=== PATIENT | female | born 1955 | race Caucasian/White ===

== ENCOUNTER 2016-08-06 13:17 | Inpatient (IN) | payer OTHER, BC ==
[~2016-08-06] VITALS: Ht 170.2 cm; Wt 100.2 kg
[2016-08-07] MEDS ORDERED: WARF-23 PO (11:58)
[2016-08-07] MEDS ORDERED: PARO20TA2 PO (11:58)
[2016-08-07] MEDS ORDERED: CIME200T23 PO (12:00)
[2016-08-07] MEDS ORDERED: LOPE7.5C PO (12:00)
[2016-08-07] MEDS ORDERED: SUPETAB20 PO (12:01)
[2016-08-24] MEDS ORDERED: CHLORHEXIDINE GLUCONATE 4% SOLN 120 ML BTL TOPICAL SCH (06:00)
[2016-08-24] MEDS ORDERED: METOPROLOL TARTRATE 25 MG TAB PO PRN (06:00)
[2016-08-24] MEDS ORDERED: LACTATED RINGER'S 1000 ML IV PRN (06:00)
[2016-08-24] MEDS ORDERED: POVIDONE IODINE 7.5% SCRUB 118 ML BOTTLE TOPICAL SCH (06:00)
[2016-08-24] MEDS ORDERED: DEXAMETHASONE SOD PHOS 20 MG/5 ML VIAL IV PRN (06:00)
[2016-08-24] MEDS ORDERED: CHLORHEXIDINE GLUCONATE 2 % 1 PACK (2 CLOTHS) TOPICAL PRN (06:00)
[2016-08-24] MEDS ORDERED: INSULIN HUMAN REGULAR 1,000 UNITS/10 ML VIAL SQ PRN (06:00)
[2016-08-24] MEDS ORDERED: VANCOMYCIN 1000 MG/NS 250 ML (for <70 kg) IV SCH ×2 (06:00)
[2016-08-24] MEDS ORDERED: POVIDONE IODINE 5% (ANTISEPSIS KIT) 4 APPLICATIONS EACH NARE PRN (06:00)
[2016-08-24] MEDS ORDERED: TRANEXAMIC ACID INJ 1,450 MG in SODIUM CHLORIDE 0.9% INJ 100 ML IV SCH (06:00)
[2016-08-24] MEDS ORDERED: TRANEXAMIC PERI-ARTICULAR 3,000 MG/NS 100 ML P-ARTICULR SCH ×2 (06:00)
[2016-08-24] MEDS ORDERED: ceFAZolin 2 GM PREMIX 50 ML IV SCH (06:00)
[2016-08-24] MEDS ORDERED: SODIUM CHLORID 0.9% 500 ML IV PRN (06:00)
[2016-08-24] MEDS ORDERED: ROPIVACAINE PERI-ARTICULAR INJECTION. P-ARTICULR SCH ×5 (06:00)
[2016-08-24] MEDS ORDERED: ENOX30P SQ (06:17)
[2016-08-24 06:19] VITALS: BP 132/86; PULSE 77; RESP 16; TEMP 98.2; O2SAT 95
[2016-08-24 06:48] LABS: PROTHROMBIN TIME - PATIENT 11.5 SEC (9.8-11.6)
[2016-08-24] MEDS ORDERED: GENTAMICIN SULFATE 80 MG/2 ML VIAL ONE (06:58)
[2016-08-24] MEDS ORDERED: HYDR-3288 PO (07:04)
[2016-08-24] MEDS ORDERED: ENOX40P SQ (07:05)
[2016-08-24] MEDS ORDERED: BISACODYL 10 MG SUPP RECTAL PRN (07:15)
[2016-08-24] MEDS ORDERED: Post-op Orders (for Pharmacy) MISC XX ONE (07:15)
[2016-08-24] MEDS ORDERED: ZOLPIDEM TARTRATE 5 MG TAB PO PRN (07:15)
[2016-08-24] MEDS ORDERED: ONDANSETRON HCL 4 MG/2 ML VIAL IVP PRN (07:15)
[2016-08-24] MEDS ORDERED: FAMOTIDINE 20 MG TAB PO PRN (07:15)
[2016-08-24] MEDS ORDERED: diphenhydrAMINE HCL 50 MG/ML VIAL IV PRN (07:15)
[2016-08-24] MEDS ORDERED: SODIUM CHLORIDE 0.9% FLUSH 5 ML FLUSH IVF PRN (07:15)
[2016-08-24] MEDS ORDERED: MORPHINE SULFATE 4 MG/ML INJ IV PUSH PRN (07:15)
[2016-08-24] MEDS ORDERED: ALUMINUM/MAGNESIUM/SIMETH 30 ML CUP PO PRN (07:15)
[2016-08-24] MEDS ORDERED: NALOXONE HCL 0.4 MG/ML AMP IV PRN (07:15)
[2016-08-24] MEDS: SODIUM CHLORIDE 0.9% FLUSH 5 ML FLUSH IVF SCH ×2 (09:00→21:00)
[2016-08-24] MEDS: PARoxetine HCL 20 MG TAB PO SCH (09:00)
[2016-08-24] MEDS ORDERED: GENTAMICIN SULFATE 80 MG/2 ML VIAL IRRIGATION ONE (09:18)
[2016-08-24] MEDS ORDERED: BUPIVACAINE LIPOSOME PF 1.3% 20 ML VIAL ONE (09:47)
[2016-08-24] MEDS ORDERED: DO NOT ADM ANY ANTICOAGULANT DRUGS PRN (11:05)
[2016-08-24] MEDS ORDERED: MIDAZOLAM HCL 2 MG/2 ML VIAL ONE (11:17)
[2016-08-24] MEDS ORDERED: *morphine SULFATE 8 MG/ML PERIprocedure ONLY ONE ×2 (11:18→11:27)
[2016-08-24] MEDS ORDERED: *MEPERIDINE 25 MG INJ VIAL PERIprocedural Use ONLY ONE (11:28)
[2016-08-24] MEDS: SODIUM CHLOR 0.9% 1000 ML INJ 1,000 ML IV SCH ×3 (11:30→19:28)
--- NOTE | 2016-08-24 11:56 | RADRPT ---
EXAM DATE/TIME: 08/24/2016 11:26 [facility] COMPARISON: No previous studies available for comparison. INDICATIONS : Post-op total right knee arthroplasty. MEDICAL HISTORY : None. SURGICAL HISTORY : Cholecystectomy. Right breast lumpectomy. ENCOUNTER: Initial ACUITY: 1 day PAIN SCORE: 8/10 LOCATION: Right knee. FINDINGS: Patient is status post placement of a right knee prosthesis. There is good position and alignment of the prosthesis and bony structures. The bony structures are grossly intact. Postsurgical changes are present. CONCLUSION: Good position and alignment on this postoperative examination. Arnold Cisneros MD on August 24, 2016 at 11:53 Board Certified Radiologist. This report was verified electronically.
[2016-08-24] MEDS ORDERED: *HYDROmorphone PF 1 MG VIAL PERIprocedural Use ONLY ONE (11:58)
[2016-08-24] MEDS ORDERED: LACTATED RINGER'S 1000 ML INJ 1,000 ML IV ONE (12:00)
[2016-08-24] MEDS ORDERED: PROPOFOL 200 MG/20 ML AMP IV ONE (12:00)
[2016-08-24] MEDS ORDERED: ONDANSETRON HCL 4 MG/2 ML VIAL IV PUSH ONE (12:00)
--- NOTE | 2016-08-24 12:05 | MP ---
cc: HELENA LONG M.D. DATE OF SURGERY 08/24/2016 PREOPERATIVE DIAGNOSIS Right knee osteoarthritis. POSTOPERATIVE DIAGNOSIS Right knee osteoarthritis. PROCEDURE Right total knee arthroplasty. SURGEON Helena Long MD CRISIS INTERVENTION COUNSELOR Edenilson Doan PA-C ANESTHESIA General with an adductor canal nerve block. ESTIMATED BLOOD LOSS 50 cc. TOURNIQUET TIME 54 minutes at 250 mmHg. COMPLICATIONS None. IMPLANTS USED DePuy Attune size 6 posterior stabilized femoral component, size 5 rotating platform tibial baseplate, size 7-mm polyethylene tibial insert, size 35 patella. JUSTIFICATION This patient is a 61-year-old female with a history of severe end-stage osteoarthritis involving the right knee. She has severe disabling pain with standing, walking, ambulation, weightbearing activities and severe pain at rest. She has failed greater than three months of nonoperative conservative treatment to include medication therapy, injections, ambulatory assistive aids, home exercise program, weight loss attempts, activity modification. X-rays of the right knee reveal severe end-stage osteoarthritis with joint space narrowing, subchondral sclerosis, subchondral cysts, osteophyte formation and varus deformity. The patient was counseled as to the risks, benefits and alternatives to a total knee arthroplasty. The risks which were discussed include but are not limited to anesthesia, bleeding, infection, damage to nerves, blood vessels, pain, stiffness, failure of the components, blood clots, pulmonary embolism and even . The patient's pain was severe. She favored the benefits over the risks and did wish to proceed with surgery. PROCEDURE IN DETAIL Written consent was obtained. The patient was identified by name and taken to the operating room, placed supine on the operating room table. General anesthesia was administered as well as 2 grams of IV Ancef and 1 gram of IV vancomycin. A well-padded tourniquet was placed on the right thigh, the right lower extremity prepped and draped using isopropyl alcohol, Hibiclens solution and ChloraPrep solution. After a time-out was performe, an Esmarch bandage was used to exsanguinate the right lower extremity and the tourniquet inflated to 250 mmHg. A longitudinal incision was made over the anterior aspect of the right knee and medial parapatellar arthrotomy was performed. The patella was everted. The patella resection guide was used to resect 9 mm of patella. A size 35-mm guide was placed and three drill holes were placed and the 35-mm trial fit well. Attention was turned to the femur where an intramedullary guide ivanna was placed. The distal femoral guide was set to remove 10-mm of distal femur 5 degrees off the anatomic valgus axis alignment. An oscillating saw was used to perform the distal femoral cut. Attention was turned to the tibia where an extramedullary tibial guide was used to resect 5-mm off the lowest portion of the medial tibial plateau. The tibial guide was pinned in place and the tibial was cut was performed. A 5-mm spacer block showed full extension. Attention was turned back to the femur where the AP sizer block measured a size 6. The anterior reference, 3-degree external rotational guide was used to pin a size [address] Anterior, posterior and chamfer cuts were performed. A size 5 tibial baseplate was pinned in place to be drilled and punched. Trial components were evaluated and final components cemented in place. With the 7-mm tibial insert, the leg could achieve full extension to 0 degrees and flexion to 140, no evidence of tibial lift-off. Varus-valgus balance appeared appropriate and symmetric and the patella was noted to track centrally. The tourniquet was deflated and Bovie cautery was used for hemostasis. I did add FloSeal to the wound to assist with local hemostasis. The arthrotomy incision was closed with #1 Vicryl suture, the subcutaneous layer closed with 2-0 Vicryl suture and the skin was closed with Dermabond. Sterile dressings were applied. The patient tolerated the procedure well. There was no intraoperative complication noted. Edenilson Doan, physician assistant men's soccer coach certified, was present during the entire procedure to assist with patient positioning and the procedure itself. The medical necessity of a physician assistant men's soccer coach was indicated in this case due to the complexity of the procedure. He assisted with appropriate manipulation of the leg and also retraction of muscle, tendon, bone and neurovascular structures. He assisted with preparation of bone and also implantation of the prosthetic replacement. Helena Long MD JWM/SSB /10:47 AM /11:53 AM
[2016-08-24 12:30] VITALS: BP 117/78; PULSE 100; RESP 18; TEMP 97.5; O2SAT 95
--- NOTE | 2016-08-24 12:59 | PD.CONS ---
HPI Service [facility] Hospitalists Consult Requested By Dr. Jacques Luna Reason for Consult Medical Management Primary Care Physician Anish Ramos, Diagnoses: History of Present Illness Mrs. rBan is a 61 y/o female with osteoarthritis, hx of breast cancer, hx of DVT/PE, and depression. She was admitted to [facility] on 08/24/16 for an elective right knee total arthroplasty which was performed by Dr. Luna. [facility] Hospitalist team was consulted to help with managing the pts chronic medical issues. She was on Coumadin 5mg po daily as an outpt which was held prior to admission and pt had been on Lovenox. She will be resumed on her Coumadin today and Lovenox tomorrow. Pt is seen post-operatively without any specific complaints. Vital signs are stable. Denies any nausea/vomiting, abd pain, chest pain, SOB, palpitations, dizziness or headache. Review of Systems Constitutional: DENIES: Fever, Chills Respiratory: DENIES: Cough, Shortness of breath Cardiovascular: DENIES: Chest pain, Palpitations Gastrointestinal: DENIES: Abdominal pain, Nausea, Vomiting Genitourinary: DENIES: Hematuria Musculoskeletal: COMPLAINS OF: Joint pain Integumentary: DENIES: Rash Neurologic: DENIES: Headache Psychiatric: DENIES: Confusion Past Family Social History Past Medical History Osteoarthritis Hx of right breast cancer Lupus Depression Hx of DVT/PE and reported hx of antiphospholipid antibody syndrome Past Surgical History Total hysterectomy Vena cava filter Cholecystectomy Right breast lumpectomy Reported Medications Lovenox Inj (Enoxaparin Sodium) 30 Mg/0.3 Ml Syr 30 Mg SQ DAILY Super B Complex Maxi (B-Complex W/ Folic Acid) 1 Tab 1 Tab PO DAILY Imodium A-D (Loperamide HCl) 2 Mg Cap 2 Mg PO DIRECTED PRN -Tagamet Hb 200 Mg PO DAILY PRN -Warfarin 5 Mg PO DAILY -Paroxetine 20 Mg PO DAILY ?Hydroxychloroquine 200mg PO DAILY Allergies: Coded Allergies: No Known Allergies (Unverified , 08/07/16) Family History Family hx unknown as pt is adopted Social History Denies any tobacco or illicit drug use Pt drinks 3 alcoholic beverages per week She is currently Pt is retired Physical Exam Vital Signs Vital Signs Date Time Temp Pulse Resp B/P Pulse Ox O2 Delivery O2 Flow Rate FiO2 08/24/16 06:19 98.2 77 16 132/86 95 Physical Exam GENERAL: This is a well-nourished, well-developed patient, in no apparent distress. HEENT: Atraumatic. Normocephalic. No temporal or scalp tenderness. No scleral icterus. Airway patent. NECK: Trachea midline, supple, nontender. CARDIO: Regular. RESP: CTA bilaterally. No wheezes, rales, or rhonchi. ABD: +BS, soft, non-tender, nondistended. EXT: Right knee bandages are c/d/i NEURO: Awake and alert. Motor and sensory grossly within normal limits. Normal speech. Laboratory Laboratory Tests Test 08/24/16 06:25 Prothrombin Time 11.5 Prothromb Time International 1.0 Ratio Blood Type O POSITIVE Antibody Screen NEGATIVE Blood Bank Comment Imaging Last Impressions Knee X-Ray 08/24/16 0702 Signed Impressions: Service Date/Time: Wednesday, August 24, 2016 11:26 - CONCLUSION: Good position and alignment on this postoperative examination. Arnold Cisneros MD Assessment and Plan Problem List: (1) Primary localized osteoarthrosis, lower leg Status: Chronic Plan: - Pt s/p right total knee arthroplasty on 08/24/[address] Luna - Post-op pain control per Ortho - Pts Coumadin has been resumed, Lovenox to be resumed tomorrow - Monitor INR daily - IS - PT - Constipation precautions. Assessment and Plan Patient examined. Assessment and plan formulated with Gayle Fan PA-C. I agree with the above. s/p right tka hx dvt/ivc filter and AP ab syndrome. possible sle. chronically anticoagulated. resume coumadin, bridge lovenox. hx breast ca s/p lumpectomy and radiation on right. Problem Qualifiers (1) Primary localized osteoarthrosis, lower leg: Qualified Code: M17.11 - Primary localized osteoarthrosis, lower leg, right Gayle Fan August 24, 2016 12:59 Trenton Adasm MD August 24, 2016 15:54
--- NOTE | 2016-08-24 13:28 | HHI.DCPOC ---
Discharge Care Plan Diagnosis: (1) Primary localized osteoarthrosis, lower leg Your Health Problems Are: Difficulty with ADL Goals to Promote Your Health * To prevent worsening of your condition and complications * To maintain your health at the optimal level Directions to Meet Your Goals Take your medications as prescribed Follow your dietary instruction Follow activity as directed Keep your appointments as scheduled Take your immunizations and boosters as scheduled If your symptoms worsen call your PCP, if no PCP go to Urgent Care Center or Emergency Room Smoking is Dangerous to Your Health. Avoid second hand smoke Call the 24-hour hour crisis hotline for domestic abuse at Jacques Doan August 24, 2016 13:28
--- NOTE | 2016-08-24 13:29 | HHI.FF ---
Face to Face Verification Diagnosis: (1) Primary localized osteoarthrosis, lower leg Physical Therapy Gait training, Safety evaluation, Transfer training, bed to chair Knee: Total knee, Protocol: Right, Full weight bearing Right LE Weight Bearing: WB as tolerated Nursing RN: 3 days/week x 2 weeks Nursing: Aurea teaching, Dressing changes Dressing Changes: Daily dressing change I have seen patient Jacquelin Bran on 08/24/16. My clinical findings support the need for the requested home health care services because: Limited ability to care for self High risk of falls I certify that my clinical findings support that this patient is homebound because: Post-op weakness Unsteady gait/balance Jacques Doan August 24, 2016 13:29
[2016-08-24] MEDS ORDERED: CPMMACHINE (13:31)
[2016-08-24] MEDS ORDERED: MISC-163 (13:31)
[2016-08-24] MEDS ORDERED: WALKER WHEELS/F1 MIS (13:31)
[2016-08-24] MEDS: ACETAMINOPHEN/HYDROcodone 325 MG/7.5 MG TAB PO PRN ×3 (14:44→22:43)
[2016-08-24] MEDS: WARFARIN SOD 5 MG TAB PO SCH (15:46)
[2016-08-24 15:57] VITALS: O2SAT 96
[2016-08-24 16:00] VITALS: BP 89/57; PULSE 93; RESP 18; TEMP 96.7; O2SAT 95
[2016-08-24 17:55] VITALS: BP 106/67
[2016-08-24 19:00] VITALS: BP 92/60; PULSE 85; RESP 16; TEMP 97.2; O2SAT 98
[2016-08-25] VITALS (7 sets, daily range): BP systolic 103–147; BP diastolic 62–80; PULSE 77–86; RESP 16–22; TEMP 97.7–99.6; O2SAT 92–99
[2016-08-25] MEDS: ACETAMINOPHEN/HYDROcodone 325 MG/7.5 MG TAB PO PRN ×6 (02:55→23:36)
[2016-08-25 05:09] LABS: HEMATOCRIT 29.1 % (35.0-46.0); MEAN CELL VOLUME 88.2 FL (80.0-100.0); MEAN CORPUSCULAR HEMOGLOBIN 29.4 PG (27.0-34.0); MEAN CORPUSCULAR HGB CONC 33.3 % (32.0-36.0); PLATELET COUNT 120 TH/MM3 (150-450); RED CELL DISTRIBUTION WIDTH 14.3 % (11.6-17.2); REVIEW FLAG FINAL; WHITE BLOOD COUNT 6.3 TH/MM3 (4.0-11.0)
[2016-08-25 05:19] LABS: PROTHROMBIN TIME - PATIENT 11.5 SEC (9.8-11.6)
[2016-08-25 05:34] LABS: BICARBONATE 29.7 MEQ/L (21.0-32.0); POTASSIUM 4.3 MEQ/L (3.5-5.1)
--- NOTE | 2016-08-25 08:20 | PD.ORT.PN ---
Subjective Post Op Day #: 1 Subjective Remarks pain under control. Objective Vitals Vital Signs Date Time Temp Pulse Resp B/P Pulse Ox O2 Delivery O2 Flow Rate FiO2 08/25/16 04:00 98.4 78 16 109/62 98 08/25/16 00:01 97.7 83 17 103/62 99 08/24/16 19:00 97.2 85 16 92/60 98 08/24/16 18:52 Nasal Cannula 2.00 08/24/16 17:55 106/67 08/24/16 16:00 96.7 93 18 89/57 95 08/24/16 15:57 96 Nasal Cannula 2.00 08/24/16 12:30 97.5 100 18 117/78 95 08/24/16 12:10 96 16 142/75 95 Nasal Cannula 3 08/24/16 12:00 97 16 150/80 95 Nasal Cannula 3 08/24/16 11:45 100 16 141/65 96 Nasal Cannula 3 08/24/16 11:30 93 16 172/74 94 Nasal Cannula 3 08/24/16 11:15 97 16 174/89 96 Nasal Cannula 3 08/24/16 11:03 98.9 100 16 155/72 95 Room Air I/O 08/24/16 08/24/16 08/24/16 08/25/16 08/25/16 08/25/16 07:00 15:00 23:00 07:00 15:00 23:00 Intake Total 2650 ml 1446 ml 1011 ml Output Total 1050 ml 600 ml 700 ml Balance 1600 ml 846 ml 311 ml Intake Oral 650 ml 480 ml 250 ml IV Total 966 ml 761 ml Other 2000 ml Output Urine Total 750 ml 600 ml 700 ml Estimated Blood Loss 300 ml # Bowel Movements 0 0 0 Result Diagram: 08/25/16 0442 08/25/16 0442 Other Results Laboratory Tests Test 08/25/16 04:42 Prothrombin Time 11.5 SEC (9.8-11.6) Prothromb Time International 1.0 RATIO Ratio Objective Remarks in bed, nad, in room incision no erythema, no drainage neg homans nvi Assessment & Plan Ortho Post Op Day #: 1 Problem List: Assessment and Plan s/p R TKA wbat daily dressing changes resume coumadin, lovenox bridge hx of DVT/PE, has IVC filter d/c planning home with [facility] and pt rx in chart f/up dr. salas 2 weeks Jacques Doan August 25, 2016 08:20
[2016-08-25] MEDS: SODIUM CHLORIDE 0.9% FLUSH 5 ML FLUSH IVF SCH ×2 (09:00→20:09)
[2016-08-25] MEDS: PARoxetine HCL 20 MG TAB PO SCH (09:04)
[2016-08-25] MEDS ORDERED: PNEUMOCOCCAL POLYVALENT INJ 25 MCG/0.5 ML SYR IM ONE (10:00)
[2016-08-25] MEDS: ENOXAPARIN SODIUM 40 MG/0.4 ML SYRINGE SQ SCH (10:12)
[2016-08-25] MEDS: SODIUM CHLOR 0.9% 1000 ML INJ 1,000 ML IV SCH ×2 (13:02→20:09)
[2016-08-25] MEDS: WARFARIN SOD 5 MG TAB PO SCH (15:59)
[2016-08-25] MEDS: MULTIVITAMINS/MINERALS THERAPEUTIC TAB PO SCH (20:08)
[2016-08-25] MEDS: DOCUSATE SODIUM 100 MG CAP PO SCH (20:08)
[2016-08-26] VITALS: BP 141/69; PULSE 84; RESP 20; TEMP 98.7; O2SAT 95
[2016-08-26] MEDS: ACETAMINOPHEN/HYDROcodone 325 MG/7.5 MG TAB PO PRN ×3 (03:43→13:01)
[2016-08-26 04:00] VITALS: BP 119/62; PULSE 75; RESP 18; TEMP 97.9; O2SAT 94
[2016-08-26 07:38] LABS: HEMATOCRIT 28.2 % (35.0-46.0); MEAN CELL VOLUME 88.2 FL (80.0-100.0); MEAN CORPUSCULAR HEMOGLOBIN 29.2 PG (27.0-34.0); MEAN CORPUSCULAR HGB CONC 33.2 % (32.0-36.0); PLATELET COUNT 111 TH/MM3 (150-450); RED CELL DISTRIBUTION WIDTH 14.6 % (11.6-17.2); REVIEW FLAG FINAL; WHITE BLOOD COUNT 4.5 TH/MM3 (4.0-11.0)
[2016-08-26 07:43] VITALS: BP 127/69; PULSE 79; RESP 17; TEMP 96.9; O2SAT 94
[2016-08-26 07:43] LABS: PROTHROMBIN TIME - PATIENT 11.6 SEC (9.8-11.6)
--- NOTE | 2016-08-26 07:51 | PD.ORT.PN ---
Subjective Post Op Day #: 2 Subjective Remarks pain better today. ready to go home. Objective Vitals Vital Signs Date Time Temp Pulse Resp B/P Pulse Ox O2 Delivery O2 Flow Rate FiO2 08/26/16 04:00 97.9 75 18 119/62 94 08/26/16 00:00 98.7 84 20 141/69 95 08/25/16 20:00 99.2 84 22 146/73 95 08/25/16 18:42 Room Air 08/25/16 16:00 99.6 86 18 147/80 92 08/25/16 12:00 98.6 77 18 135/68 92 08/25/16 10:13 96 21 08/25/16 08:00 98.5 80 18 108/62 96 I/O 08/25/16 08/25/16 08/25/16 08/26/16 08/26/16 08/26/16 07:00 15:00 23:00 07:00 15:00 23:00 Intake Total 1011 ml 960 ml 780 ml 240 ml Output Total 700 ml Balance 311 ml 960 ml 780 ml 240 ml Intake Oral 250 ml 960 ml 780 ml 240 ml IV Total 761 ml Output Urine Total 700 ml # Voids 3 4 2 # Bowel Movements 0 0 0 0 Result Diagram: 08/26/16 0656 08/25/16 0442 Other Results Laboratory Tests Test 08/26/16 06:56 Prothrombin Time 11.6 SEC (9.8-11.6) Prothromb Time International 1.0 RATIO Ratio Objective Remarks in bed, nad incision no erythema, no drainage slight swelling neg homans nvi Assessment & Plan Ortho Post Op Day #: 2 Problem List: Assessment and Plan s/p R TKA wbat daily dressing changes resumed coumadin, lovenox bridge hx of DVT/PE, has IVC filter d/c planning home with [facility] and pt - cleared for today rx in chart f/up dr. salas 2 weeks Jacques Doan August 26, 2016 07:51
[2016-08-26 08:11] LABS: BICARBONATE 29.6 MEQ/L (21.0-32.0); POTASSIUM 3.8 MEQ/L (3.5-5.1)
[2016-08-26] MEDS: MULTIVITAMINS/MINERALS THERAPEUTIC TAB PO SCH (08:49)
[2016-08-26] MEDS: PARoxetine HCL 20 MG TAB PO SCH (08:49)
[2016-08-26] MEDS: ENOXAPARIN SODIUM 40 MG/0.4 ML SYRINGE SQ SCH (08:49)
[2016-08-26] MEDS: SODIUM CHLOR 0.9% 1000 ML INJ 1,000 ML IV SCH (08:49)
[2016-08-26] MEDS: DOCUSATE SODIUM 100 MG CAP PO SCH (08:49)
[2016-08-26] MEDS: SODIUM CHLORIDE 0.9% FLUSH 5 ML FLUSH IVF SCH (08:50)
[2016-08-26] MEDS ORDERED: DOCUSATE SODIUM 50 MG/SENNA 8.6 MG TAB PO SCH (09:00)
[2016-08-26 11:58] VITALS: BP 114/72; PULSE 73; RESP 17; TEMP 98; O2SAT 94
[2016-08-26] MEDS: WARFARIN SOD 5 MG TAB PO SCH (15:07)
--- NOTE | 2016-08-31 14:27 | MD ---
cc: HELENA LONG M.D. ADMISSION DATE: 08/24/2016 DISCHARGE DATE: 08/26/2016 ADMITTING DIAGNOSIS Severe degenerative osteoarthritis, right knee. DISCHARGE DIAGNOSIS Severe degenerative osteoarthritis, right knee. HISTORY OF PRESENT ILLNESS Mrs. Bran is a 61-year-old female who presented to the [facility] for evaluation by Dr. Helena Long regarding her severe and progressive right knee pain. The patient states the pain has been progressive for greater than one year duration for which she has been treated for this ailment. She states currently her pain is a constant severe aching sensation that is inhibiting her activities of daily living. She notes the pain is exacerbated with weightbearing activities and she has no alleviating factors at this point in time. In the past she has tried medications, bracing, physical therapy, home exercise program, weight loss attempts and multiple corticosteroid injections without long-lasting relief. She does have x-ray evidence of severe degenerative osteoarthritis of the right knee. While in the office the patient was counseled on her diagnosis and treatment options, risks, benefits and indications were discussed. The patient did elect to proceed with surgical intervention to include a right total knee arthroplasty. The patient does have a history of DVT with pulmonary embolism and has in the past had an IVC filter placed. She does take Coumadin for this. Date of surgery 08/24/2016: Right total knee arthroplasty. POST-OP After surgery the patient was admitted to [facility] where she received appropriate medical management, pain control, DVT prophylaxis as well as physical therapy. The patient was restarted on Coumadin postoperatively and was also given a Lovenox bridge. DISCHARGE Once being discharged from the hospital the patient has been cleared to go home where she will receive home health care and home physical therapy. She is in stable condition. She may weight bear as tolerated. She is to receive daily dressing changes and has been instructed on proper wound care management. The patient has been provided prescriptions for pain control as well as Lovenox to continue until her Coumadin and INR become therapeutic. She has also been provided a follow-up appointment to see Dr. Helena Long in the office approximately two weeks from the day of surgery. The patient and the patient's have asked appropriate questions which have been answered. The patient has been discharged. Dictated by: Helena Doan PA-C MD KAIN Mejía /8:08 AM /2:26 PM
== END 2016-08-26 15:44 | disposition home health service (06) | DRG 470 ==
LOC: HSDI 08-24 05:18 → N06B 08-24 12:38
PROVIDERS: ADMIT Orthopaedic Surgery Sports Medicine; ATTEND Orthopaedic Surgery Sports Medicine
PROC: 3E0T3CZ (ICD-10-PCS; 2016-08-24)
PROC: 0SRC0JZ Replacement of Right Knee Joint with Synthetic Substitute, Open Approach (ICD-10-PCS; principal; 2016-08-24 08:17)
DX: M17.11 Unilateral primary osteoarthritis, right knee (principal); D68.61 Antiphospholipid syndrome; F32.9 Major depressive disorder, single episode, unspecified; Z85.3 Personal history of malignant neoplasm of breast; Z86.711 Personal history of pulmonary embolism; Z86.718 Personal history of other venous thrombosis and embolism; Z79.01 Long term (current) use of anticoagulants; Z23 Encounter for immunization
CPT/HCPCS: 73560; 80048; 82948; 85027; 85610; 86850; 86900; 86901; 90732; 94150; C1713; C1776; C9290; J0171; J0690; J0735; J1100; J1170; J1580; J1650; J1885; J2175; J2250; J2270; J2405; J2795; J3010; J3370; J7030; J7050; J7120; L1830

== ENCOUNTER → 2016-08-07 | Outpatient (CLI) | payer OTHER, BC ==
[~2016-08-07] MED LIST: CIME200T23 PO; CPMMACHINE; ENOX30P SQ; ENOX40P SQ; HYDR-3288 PO; LOPE7.5C PO; MISC-163; PARO20TA2 PO; SUPETAB20 PO; WALKER WHEELS/F1 MIS; WARF-23 PO
[2016-08-07 12:55] LABS: AUTOMATED NEUTROPHIL # 3.4 TH/MM3 (1.8-7.7); BASOPHIL % 0.6 % (0.0-2.0); EOSINOPHIL # 0.2 TH/MM3 (0-0.4); EOSINOPHIL % 2.9 % (0.0-4.0); HEMATOCRIT 39.9 % (35.0-46.0); HEMO FLAGS DIFF FINAL; LYMPH % 26.7 % (9.0-44.0); LYMPHOCYTE # 1.4 TH/MM3 (1.0-4.8); MEAN CELL VOLUME 86.8 FL (80.0-100.0); MEAN CORPUSCULAR HEMOGLOBIN 28.8 PG (27.0-34.0); MEAN CORPUSCULAR HGB CONC 33.2 % (32.0-36.0); MONO % 6.5 % (0.0-8.0); NEUT % 63.3 % (16.0-70.0); PLATELET COUNT 158 TH/MM3 (150-450); RED CELL DISTRIBUTION WIDTH 14.6 % (11.6-17.2); WHITE BLOOD COUNT 5.4 TH/MM3 (4.0-11.0)
[2016-08-07 13:01] LABS: BLOOD, URINE NEG (NEG); COMMENT (UR) CULT NOT INDICATED; CULTURE IF INDICATED CULT NOT INDICATED; GLUCOSE,URINE NEG (NEG); KETONE, URINE NEG (NEG); MUCUS URINE FEW /lpf (OCC); NITRITE,URINE NEG (NEG); PH, URINE 5.5 (5.0-8.5); URINE COLOR YELLOW (YELLW/STRAW)
[2016-08-07 13:05] LABS: APTT (PATIENT) 45.4 SEC (24.3-30.1); INTERNATIONAL NORMALIZED RATIO 3.2 RATIO; PROTHROMBIN TIME - PATIENT 37.5 SEC (9.8-11.6)
[2016-08-07 13:27] LABS: ALKALINE PHOSPHATASE 133 U/L (45-117); ALT (GPT) 25 U/L (10-53); ANION GAP 9 MEQ/L (5-15); AST (GOT) 18 U/L (15-37); BICARBONATE 29.1 MEQ/L (21.0-32.0); BLOOD UREA NITROGEN 16 MG/DL (7-18); CHLORIDE 103 MEQ/L (98-107); GLOMERULAR FILTRATION RATE 60 ML/MIN (>89); GLUCOSE,FASTING 88 MG/DL (74-99); POTASSIUM 4.3 MEQ/L (3.5-5.1); SODIUM (NA) 141 MEQ/L (136-145); TOTAL BILIRUBIN ADULT 0.6 MG/DL (0.2-1.0)
--- NOTE | 2016-08-07 13:37 | RADRPT ---
EXAM DATE/TIME: 08/07/2016 12:41 [facility] COMPARISON: No previous studies available for comparison. INDICATIONS : Evaluate for pneumothorax, pneumonia or communicable disease. Preop chest for right total knee surger y on 08/24/16 MEDICAL HISTORY : SURGICAL HISTORY : lumpectomy ENCOUNTER: Initial ACUITY: 1 day PAIN SCORE: 0/10 LOCATION: Bilateral chest FINDINGS: The lungs are clear without infiltrate, nodule, or mass. There is no appreciable pleural effusion fo r technique. Heart and mediastinum are unremarkable. IMPRESSION: No acute cardiopulmonary disease. Norbert Eldridge MD on August 07, 2016 at 13:34 Board Certified Radiologist. This report was verified electronically.
[2016-08-07 14:01] LABS: WESTERGREN SEDIMENTATION RATE 13 mm/hr (0-30)
--- NOTE | 2016-08-08 19:31 | EKG ---
Date Performed: 08/07/2016 Time Performed: 11:49:30 PTAGE: 61 years EKG: Sinus rhythm NORMAL ECG NO PREVIOUS TRACING DOCTOR: Lawanda Jasso Interpretating Date/Time 08/08/2016 19:30:27
== END ==
LOC: CPRE 11:17
PROVIDERS: ATTEND Orthopaedic Surgery Sports Medicine
DX: Z01.810 Encounter for preprocedural cardiovascular examination (principal); Z01.811 Encounter for preprocedural respiratory examination; Z01.812 Encounter for preprocedural laboratory examination; Z01.818 Encounter for other preprocedural examination; Z96.60 Presence of unspecified orthopedic joint implant; M25.50 Pain in unspecified joint; Z79.01 Long term (current) use of anticoagulants; M17.0 Bilateral primary osteoarthritis of knee
CPT/HCPCS: 36415; 71020; 80053; 81001; 85025; 85610; 85652; 85730; 93005

== ENCOUNTER 2017-02-01 05:03 | Inpatient (IN) | payer OTHER, BC ==
[~2017-02-01] VITALS: Ht 170.2 cm; Wt 92.0 kg
[~2017-02-01 05:03] MED LIST changes: -CPMMACHINE; -ENOX30P SQ; -ENOX40P SQ; +ENOX60P SQ; -HYDR-3288 PO; -LOPE7.5C PO; -MISC-163; -SUPETAB20 PO; +VITACAP7 PO; -WALKER WHEELS/F1 MIS; -WARF-23 PO
[2017-02-01] MEDS ORDERED: ROPIVACAINE PERI-ARTICULAR INJECTION. P-ARTICULR SCH ×5 (05:30)
[2017-02-01] MEDS ORDERED: VANCOMYCIN 1000 MG/NS 250 ML (for <70 kg) IV SCH ×2 (05:30)
[2017-02-01] MEDS ORDERED: SODIUM CHLORIDE 0.9% IV SCH (05:30)
[2017-02-01] MEDS ORDERED: DEXAMETHASONE SOD PHOS 20 MG/5 ML VIAL IV PUSH SCH (05:30)
[2017-02-01] MEDS ORDERED: TRANEXAMIC PERI-ARTICULAR 3,000 MG/NS 100 ML P-ARTICULR SCH ×2 (05:30)
[2017-02-01] MEDS ORDERED: ceFAZolin 2 GM PREMIX 50 ML IV SCH (05:30)
[2017-02-01] MEDS ORDERED: POVIDONE IODINE 7.5% SCRUB 118 ML BOTTLE TOPICAL SCH (05:30)
[2017-02-01] MEDS ORDERED: TRANEXAMIC ACID IV SCH (05:30)
[2017-02-01] MEDS ORDERED: CHLORHEXIDINE GLUCONATE 4% SOLN 120 ML BTL TOPICAL SCH (05:30)
[2017-02-01] MEDS ORDERED: WARF-23 PO (05:43)
[2017-02-01] MEDS ORDERED: METOPROLOL TARTRATE 25 MG TAB PO PRN (05:45)
[2017-02-01] MEDS ORDERED: POVIDONE IODINE 5% (ANTISEPSIS KIT) 4 APPLICATIONS EACH NARE PRN (05:45)
[2017-02-01] MEDS ORDERED: LACTATED RINGER'S 1000 ML IV PRN (05:45)
[2017-02-01] MEDS ORDERED: CHLORHEXIDINE GLUCONATE 2 % 1 PACK (2 CLOTHS) TOPICAL PRN (05:45)
[2017-02-01] MEDS ORDERED: INSULIN HUMAN REGULAR 1,000 UNITS/10 ML VIAL SQ PRN (05:45)
[2017-02-01] MEDS ORDERED: SODIUM CHLORID 0.9% 500 ML IV PRN (05:45)
[2017-02-01] MEDS ORDERED: GENTAMICIN SULFATE 80 MG/2 ML VIAL ONE (06:02)
[2017-02-01 06:05] LABS: INTERNATIONAL NORMALIZED RATIO 1.1 RATIO; PROTHROMBIN TIME - PATIENT 11.9 SEC (9.8-11.6)
[2017-02-01] MEDS ORDERED: ACETAMINOPHEN 1000 MG/100 ML 100 ML IV ONE (06:37)
[2017-02-01] MEDS ORDERED: FAMOTIDINE 20 MG/2 ML VIAL ONE (06:37)
[2017-02-01] MEDS ORDERED: BUPIVACAINE HCL PF 0.5% 30 ML VIAL ONE (06:43)
[2017-02-01] MEDS ORDERED: HYDR-3288 PO (06:55)
[2017-02-01] MEDS ORDERED: COUM3TAB PO (06:56)
[2017-02-01] MEDS ORDERED: ENOX40P SQ (06:56)
[2017-02-01] MEDS ORDERED: ZOLPIDEM TARTRATE 5 MG TAB PO PRN (07:00)
[2017-02-01] MEDS ORDERED: SODIUM CHLORIDE 0.9% FLUSH 5 ML FLUSH IVF PRN (07:00)
[2017-02-01] MEDS ORDERED: BISACODYL 10 MG SUPP RECTAL PRN (07:00)
[2017-02-01] MEDS ORDERED: diphenhydrAMINE HCL 50 MG/ML VIAL IV PUSH PRN (07:00)
[2017-02-01] MEDS ORDERED: ONDANSETRON HCL 4 MG/2 ML VIAL IVP PRN (07:00)
[2017-02-01] MEDS ORDERED: Post-op Orders (for Pharmacy) MISC XX ONE (07:00)
[2017-02-01] MEDS ORDERED: MORPHINE SULFATE 4 MG/ML INJ IV PUSH PRN (07:00)
[2017-02-01] MEDS ORDERED: TRANEXAMIC PERI-ARTICULAR 3,000 MG/NS 100 ML P-ARTICULR ONE ×2 (07:45)
[2017-02-01] MEDS ORDERED: DO NOT ADM ANY ANTICOAGULANT DRUGS PRN (08:45)
[2017-02-01] MEDS ORDERED: *MEPERIDINE 25 MG INJ VIAL PERIprocedural Use ONLY ONE (08:49)
[2017-02-01] MEDS: PARoxetine HCL 20 MG TAB PO SCH (09:00)
[2017-02-01] MEDS: SODIUM CHLOR 0.9% 1000 ML INJ 1,000 ML IV SCH ×2 (09:20→16:52)
[2017-02-01] MEDS: SODIUM CHLORIDE 0.9% FLUSH 5 ML FLUSH IVF SCH ×2 (09:20→21:00)
[2017-02-01 09:30] VITALS: BP 135/79; PULSE 89; RESP 18; TEMP 98.3; O2SAT 95
--- NOTE | 2017-02-01 09:49 | RADRPT ---
EXAM DATE/TIME: 02/01/2017 08:56 [facility] COMPARISON: No previous studies available for comparison. INDICATIONS : Post op left total knee. MEDICAL HISTORY : None. SURGICAL HISTORY : None. ENCOUNTER: Initial ACUITY: 1 day PAIN SCORE: 4/10 LOCATION: Left Knee FINDINGS: 2 views of the knee show a total knee prosthesis in good position. No fracture or dislocation is obse rved. Soft tissue swelling is noted. Small amount of fluid and air within the joint. CONCLUSION: Total knee arthroplasty in good position. Moiz Iyer Jr., MD on February 01, 2017 at 9:47 Board Certified Radiologist. This report was verified electronically.
[2017-02-01] MEDS ORDERED: CIMETIDINE 200 MG PO (10:15)
[2017-02-01] MEDS: ACETAMINOPHEN/HYDROcodone 325 MG/7.5 MG TAB PO PRN ×5 (10:18→23:49)
--- NOTE | 2017-02-01 10:32 | MP ---
cc: HELENA LONG M.D. DATE OF SURGERY: 02/01/2017 PREOPERATIVE DIAGNOSIS Left knee osteoarthritis. POSTOPERATIVE DIAGNOSIS Left knee osteoarthritis. PROCEDURE Left total knee arthroplasty. SURGEON Dr. Helena Long. SUPERVISOR [employer]STOCK [employer]ARD Helena Doan PA-C. ANESTHESIA General with an adductor canal femoral nerve block. ESTIMATED BLOOD LOSS 150 cc. TOURNIQUET TIME 41 minutes at 300 mmHg. COMPLICATIONS None. IMPLANTS USED DePuy Attune size 6 posterior stabilized femoral component, size 6 rotating platform tibial baseplate, size 38 mm patella, size 5 mm polyethylene tibial insert. JUSTIFICATION This patient is a female with a history of severe end-stage osteoarthritis involving the left knee. She has severe disabling pain with standing, walking, ambulation, weightbearing activities and even severe pain at rest. It does interfere with activities of daily living. She has failed greater than three months of nonoperative conservative treatment to include medication therapy, injections, ambulatory assisted aids, home exercise program, activity modification, weight loss attempts. X-rays of the left knee reveal severe end-stage osteoarthritis, [id number] joint space narrowing, subchondral sclerosis, subchondral cysts, osteophyte formation with varus deformity. The patient was counseled as to the risks, benefits and alternatives to a total knee arthroplasty. The risks were discussed which include but are not limited to anesthesia, bleeding, infection, damage to nerves and blood vessels, pain, stiffness, failure of hardware, blood clots, pulmonary embolus and even . The patient's pain is severe. She favored the benefits over the risks. She did wish to proceed with surgery. PROCEDURE IN DETAIL Written consent was obtained. The patient was identified by name, taken to the operating room and placed supine on the operating table. General anesthesia was administered as well as two grams of IV Ancef and one gram of IV vancomycin. A well-padded tourniquet was placed on the left thigh. The left lower extremity was prepped and draped using isopropyl alcohol, Hibiclens solution and ChloraPrep solution. After a timeout was performed an Esmarch bandage was used to exsanguinate the left lower extremity and tourniquet inflated to 300 mmHg. A longitudinal incision was made over the anterior aspect of the left knee. A medial parapatellar arthrotomy was performed. The patella was everted and a patellar resection guide was used to resect 9 mm of patella. A size 38 mm guide was placed. Three drill holes were placed. The 38 mm trial fit well. Attention was turned to the femur where an intramedullary guide ivanna was placed. The distal femoral guide was set to remove 10 mm of distal femur 5 degrees off the anatomic valgus axis alignment. An oscillating saw was used to perform the distal femoral cut. Attention was turned to the tibia where an extramedullary tibial guide was set to remove 5 mm off the lowest portion of the medial tibial plateau. The tibial guide was pinned in place and a tibia cut was performed. A 5 mm spacer block showed full extension. Attention was turned back the femur where an AP sizing block measured a size 6. The anterior reference 3 degree external rotation guide was used to pin a size [address] The anterior, posterior and chamfer cuts were performed. A size 6 PCL box guide was pinned in place and the PCL was box out with an oscillating saw. The medial and lateral meniscus remnants were removed as well as bone and soft tissue debris from the posterior portion of the knee. A size 6 tibia baseplate was pinned in place and the tibia was drilled and punched. The trial components were evaluated and final components cemented in place. With the current components the leg could achieve full extension to 0 degrees and flexion to 140. No evidence of tibial lift-off. Varus-valgus balance appeared appropriate and symmetric. The tourniquet was deflated. Bovie cautery was used for hemostasis. The surgical wound was thoroughly irrigated with sterile saline pulse lavage antibiotic-impregnated solution. The arthrotomy incision was closed with #1 Vicryl suture, the subcutaneous layer with 2-0 Vicryl suture and the skin was closed with Dermabond. Sterile dressing was applied. The patient tolerated the procedure well with no intraoperative complications noted. Helena Doan, physician administrative assistant front desk certified, was present during the entire procedure to include patient positioning and the procedure itself. The medical necessity of the physician administrative assistant front desk was indicated in this case due to the complexity of the procedure. He assisted with appropriate manipulation of the leg and also retraction of muscle, tendon, bone and neurovascular structures. He assisted with preparation of bone and also implantation of the prosthetic replacement. MD ABHI Mejía/MARCELINO /9:54 AM /12:18 PM
--- NOTE | 2017-02-01 13:28 | HHI.DCPOC ---
Discharge Care Plan Diagnosis: (1) Primary localized osteoarthrosis, lower leg Your Health Problems Are: Difficulty with ADL Goals to Promote Your Health * To prevent worsening of your condition and complications * To maintain your health at the optimal level Directions to Meet Your Goals Take your medications as prescribed Follow your dietary instruction Follow activity as directed Keep your appointments as scheduled Take your immunizations and boosters as scheduled If your symptoms worsen call your PCP, if no PCP go to Urgent Care Center or Emergency Room Smoking is Dangerous to Your Health. Avoid second hand smoke Call the 24-hour hour crisis hotline for domestic abuse at Jacques Doan Feb 01, 2017 13:28
--- NOTE | 2017-02-01 13:29 | HHI.FF ---
Face to Face Verification Diagnosis: (1) Primary localized osteoarthrosis, lower leg Physical Therapy Gait training, Safety evaluation, Transfer training, bed to chair Knee: Total knee, Protocol: Left, Full weight bearing Left LE Weight Bearing: WB as tolerated Nursing RN: 3 days/week x 2 weeks Nursing: Aurea teaching, Dressing changes Dressing Changes: Daily dressing change I have seen patient Jacquelin Bran on 02/01/17. My clinical findings support the need for the requested home health care services because: Limited ability to care for self High risk of falls I certify that my clinical findings support that this patient is homebound because: Post-op weakness Unsteady gait/balance Jacques Doan Feb 01, 2017 13:29
[2017-02-01] MEDS ORDERED: CPMMACHINE (13:30)
[2017-02-01] MEDS: WARFARIN SOD 5 MG TAB PO SCH (15:38)
[2017-02-01 16:32] VITALS: O2SAT 95
[2017-02-01 20:00] VITALS: BP 117/62; PULSE 76; RESP 17; TEMP 97.6; O2SAT 94
[2017-02-02 00:20] VITALS: BP 122/58; PULSE 78; RESP 17; TEMP 97.5; O2SAT 95
[2017-02-02] MEDS: SODIUM CHLOR 0.9% 1000 ML INJ 1,000 ML IV SCH ×2 (02:52→12:52)
[2017-02-02 04:00] VITALS: BP 122/68; PULSE 70; RESP 16; TEMP 97.8; O2SAT 95
[2017-02-02] MEDS: ACETAMINOPHEN/HYDROcodone 325 MG/7.5 MG TAB PO PRN ×2 (04:02→13:20)
[2017-02-02 07:51] LABS: HEMATOCRIT 31.2 % (35.0-46.0); MEAN CELL VOLUME 87.2 FL (80.0-100.0); MEAN CORPUSCULAR HEMOGLOBIN 28.9 PG (27.0-34.0); MEAN CORPUSCULAR HGB CONC 33.1 % (32.0-36.0); PLATELET COUNT 142 TH/MM3 (150-450); RED BLOOD COUNT 3.58 MIL/MM3 (4.00-5.30); RED CELL DISTRIBUTION WIDTH 15.6 % (11.6-17.2); REVIEW FLAG FINAL
[2017-02-02 07:59] LABS: PROTHROMBIN TIME - PATIENT 11.4 SEC (9.8-11.6)
[2017-02-02 08:00] VITALS: BP 117/69; PULSE 84; RESP 18; TEMP 97.1; O2SAT 93
[2017-02-02] MEDS ORDERED: ENOXAPARIN SODIUM 40 MG/0.4 ML SYRINGE SQ SCH (08:00)
[2017-02-02] MEDS ORDERED: oxyCODONE/ACETAMINOPHEN 10 MG/325 MG TAB PO PRN (08:15)
[2017-02-02 08:32] LABS: BICARBONATE 25.9 MEQ/L (21.0-32.0); POTASSIUM 4.3 MEQ/L (3.5-5.1)
[2017-02-02] MEDS: SODIUM CHLORIDE 0.9% FLUSH 5 ML FLUSH IVF SCH (08:54)
[2017-02-02] MEDS: PARoxetine HCL 20 MG TAB PO SCH (08:54)
[2017-02-02] MEDS ORDERED: DOCUSATE SODIUM 50 MG/SENNA 8.6 MG TAB PO SCH (09:00)
--- NOTE | 2017-02-02 09:11 | PD.ORT.PN ---
Subjective Post Op Day #: 1 Subjective Remarks painful. Objective Vitals Vital Signs Date Time Temp Pulse Resp B/P (MAP) Pulse Ox O2 Delivery O2 Flow Rate FiO2 02/02/17 04:00 97.8 70 16 122/68 (86) 95 02/02/17 00:20 97.5 78 17 122/58 (79) 95 02/01/17 20:00 97.6 76 17 117/62 (80) 94 02/01/17 16:32 95 21 02/01/17 09:30 98.3 89 18 135/79 (97) 95 02/01/17 09:24 98.7 94 20 146/68 (94) 94 Nasal Cannula 2 02/01/17 09:15 97 15 149/70 (96) 95 Nasal Cannula 2 I/O 02/01/17 02/01/17 02/01/17 02/02/17 02/02/17 02/02/17 07:00 15:00 23:00 07:00 15:00 23:00 Intake Total 1420 ml 240 ml 1650 ml Output Total 3650 ml 2100 ml Balance -2230 ml -1860 ml 1650 ml Intake Oral 240 ml 240 ml IV Total 1420 ml 1410 ml Output Urine Total 200 ml 2100 ml Estimated Blood Loss 450 ml Other 3000 ml # Voids 1 1 # Bowel Movements 0 0 Result Diagram: 02/02/17 0648 02/02/17 0648 Other Results Laboratory Tests Test 02/02/17 06:48 Prothromb Time International Ratio 1.0 RATIO Prothrombin Time 11.4 SEC (9.8-11.6) Objective Remarks in bed, nad, using cpm incision no erythema, no drainage neg homans nvi Assessment & Plan Ortho Post Op Day #: 1 Problem List: Assessment and Plan s/p L TKA wbat daily dressing changes Lovenox bridge until Coumadin therapeutic hx of dvt d/c planning home with [facility] and pt - cleared if pain under control rx in chart f/up dr. salas 2 weeks Jacques Doan Feb 02, 2017 09:11
[2017-02-02] MEDS ORDERED: PNEUMOCOCCAL POLYVALENT INJ 25 MCG/0.5 ML SYR IM ONE (10:00)
[2017-02-02 12:00] VITALS: BP 140/77; PULSE 81; RESP 18; TEMP 98.2; O2SAT 95
[2017-02-02] MEDS: WARFARIN SOD 5 MG TAB PO SCH (15:39)
--- NOTE | 2017-02-02 15:50 | PD.CONS ---
History of Present Illness Service Medicine Consult Requested By Attending Reason for Consult Medical management Primary Care Physician Anish Ramos DO Diagnoses: (1) Antiphospholipid antibody syndrome (2) Primary localized osteoarthrosis, lower leg (3) Depression History of Present Illness Patient is a very pleasant 61 year old female admitted per ortho for left total knee. Patient has past medical history of osteoarthritis, depression, DVT, and positive antiphospholipid antibody. Review of Systems Respiratory: DENIES: Cough, Snoring, Wheezing, Shortness of breath Cardiovascular: DENIES: Chest pain, Palpitations, Dyspnea on Exertion Gastrointestinal: COMPLAINS OF: Constipation, DENIES: Abdominal pain Musculoskeletal: COMPLAINS OF: Joint pain Psychiatric: COMPLAINS OF: Depression Past Family Social History Allergies: Coded Allergies: No Known Allergies (Unverified , 02/01/17) Past Medical History OA depression anxiety DVT antiphospholipid antibody Active Ordered Medications Current Medications Medications (Trade) Dose Ordered Sig/Js Route Start Time Stop Time Status Last Admin (Betadine 7.5% Scrub) 1 applic ONCE TOPICAL 02/01/17 05:30 02/04/17 05:29 (Hibiclens 4% Top Soln) 1 applic ONCE TOPICAL 02/01/17 05:30 02/04/17 05:29 02/01/17 05:15 Cefazolin Sodium/ Dextrose 50 ml @ 100 mls/hr ELECTRICAL CALIBRATOR IV 02/01/17 05:30 02/04/17 05:29 02/01/17 06:35 Vancomycin HCl 1000 mg/Sodium Chloride 250 ml @ 250 mls/hr ELECTRICAL CALIBRATOR IV 02/01/17 05:30 02/04/17 05:29 02/01/17 06:02 Lactated Ringer's 1,000 ml @ 30 mls/hr Q24H PRN IV 02/01/17 05:45 02/04/17 05:44 02/01/17 05:45 Sodium Chloride 500 ml @ 30 mls/hr [id number] PRN IV 02/01/17 05:45 02/04/17 05:44 (Lopressor) 25 mg ELECTRICAL CALIBRATOR PRN PO 02/01/17 05:45 02/04/17 05:44 (Betadine 5% Antisepsis Kit) 1 applic ELECTRICAL CALIBRATOR PRN EACH NARE 02/01/17 05:45 02/04/17 05:44 02/01/17 05:55 (Chlorhexidine 2% Cloth) 3 pack ELECTRICAL CALIBRATOR PRN TOPICAL 02/01/17 05:45 02/04/17 05:44 02/01/17 05:10 (NovoLIN R INJ) See Protocol Table ... ELECTRICAL CALIBRATOR PRN SQ 02/01/17 05:45 02/04/17 05:44 (Paxil) 20 mg DAILY PO 02/01/17 09:00 02/02/17 08:54 Patient Own Medication PT OWN MED: TAGAMET... DAILY PRN PO 02/01/17 10:15 Future Hold Sodium Chloride 1,000 ml @ 100 mls/hr Q10H IV 02/01/17 06:52 02/01/17 09:20 (NS Flush) 2 ml UNSCH PRN IVF 02/01/17 07:00 (NS Flush) 2 ml BID IVF 02/01/17 09:00 02/02/17 08:54 (Lovenox Inj) 40 mg Q24H SQ 02/02/17 08:00 02/11/17 08:01 02/02/17 08:54 (Morphine Inj) 3 mg Q3H PRN IV PUSH 02/01/17 07:00 ([place] 7.5-325 Mg) 2 tab Q4H PRN PO 02/01/17 07:00 02/02/17 13:20 (Theragran M Tab) 1 tab BID PO 02/02/17 21:00 04/03/17 20:59 (Zofran Inj) 4 mg Q6H PRN IVP 02/01/17 07:00 (Ambien) 5 mg HS PRN PO 02/01/17 07:00 (Dulcolax Supp) 10 mg DAILY PRN RECTAL 02/01/17 07:00 (Benadryl Inj) 25 mg Q6H PRN IV PUSH 02/01/17 07:00 (Coumadin) 5 mg DAILY@1600 PO 02/01/17 16:00 02/01/17 15:38 (Percocet 10-325 Mg) 1 tab Q4H PRN PO 02/02/17 08:15 02/02/17 08:55 (Trang-Colace) 1 tab BID PO 02/02/17 09:00 02/02/17 08:54 Family History Unknown adopted Social History Denies smoking Denies ETOH Lives with Physical Exam Vital Signs Vital Signs Date Time Temp Pulse Resp B/P (MAP) Pulse Ox O2 Delivery O2 Flow Rate FiO2 02/02/17 12:00 98.2 81 18 140/77 (98) 95 02/02/17 08:00 97.1 84 18 117/69 (85) 93 02/02/17 04:00 97.8 70 16 122/68 (86) 95 02/02/17 00:20 97.5 78 17 122/58 (79) 95 02/01/17 20:00 97.6 76 17 117/62 (80) 94 02/01/17 16:32 95 21 Physical Exam GENERAL: alert and oriented. SKIN: Warm and dry. HEAD: Normocephalic. EYES: No scleral icterus. No injection or drainage. NECK: Supple, trachea midline. No JVD or lymphadenopathy. CARDIOVASCULAR: Regular rate and rhythm without murmurs, gallops, or rubs. RESPIRATORY: Breath sounds equal bilaterally. No accessory muscle use. GASTROINTESTINAL: Abdomen soft, non-tender, nondistended. MUSCULOSKELETAL: No cyanosis, or edema. Dressing on left knee BACK: Nontender without obvious deformity. No CVA tenderness. Laboratory Laboratory Tests Test 02/02/17 06:48 White Blood Count 6.0 Red Blood Count 3.58 Hemoglobin 10.3 Hematocrit 31.2 Mean Corpuscular Volume 87.2 Mean Corpuscular Hemoglobin 28.9 Mean Corpuscular Hemoglobin Concent 33.1 Red Cell Distribution Width 15.6 Platelet Count 142 Mean Platelet Volume 8.6 Prothrombin Time 11.4 Prothromb Time International Ratio 1.0 Blood Urea Nitrogen 14 Creatinine 1.09 Random Glucose 107 Calcium Level 8.5 Sodium Level 143 Potassium Level 4.3 Chloride Level 110 Carbon Dioxide Level 25.9 Anion Gap 7 Estimat Glomerular Filtration Rate 51 Result Diagram: 02/02/1748 02/02/1748 Imaging Last 48 hours Impressions Knee X-Ray 02/01/1752 Signed Impressions: Service Date/Time: Wednesday, February 01, 2017 08:56 - CONCLUSION: Total knee arthroplasty in good position. Moiz Iyer Jr., MD Assessment and Plan Problem List: (1) Status post total left knee replacement ICD Codes: Z96.652 - Presence of left artificial knee joint (2) Primary localized osteoarthrosis, lower leg ICD Codes: M17.10 - Unilateral primary osteoarthritis, unspecified knee (3) Depression ICD Codes: F32.9 - Major depressive disorder, single episode, unspecified (4) Antiphospholipid antibody syndrome ICD Codes: D68.61 - Antiphospholipid syndrome Assessment and Plan 02/02/17 S/P left total knee: Dressing on. Complaining of increased pain. Percocet added. PT and OT ordered. On Lovenox for DVT prophylaxis. Hx of DVT: Patient with antiphospholipid antibody on warfarin for anticoagulation. Bridging with lovenox will check daily INR until therapeutic and discontinue lovenox. Depression and anxiety: Continue paxil. Constipation: Colace changed to senna. Anemia: HGB 10.3 will monitor. labs in AM I and the 3D SPECIALIST have both examined this patient and reviewed this note and I agree with these findings and plan of care. Anish aRmos. Discussed Condition With Nursing Problem Qualifiers (1) Primary localized osteoarthrosis, lower leg: Qualified Codes: M17.12 - Unilateral primary osteoarthritis, left knee Haleigh AlvaradoP Feb 02, 2017 15:50
[2017-02-02] MEDS ORDERED: DOCUSATE SODIUM 100 MG CAP PO SCH (21:00)
[2017-02-02] MEDS ORDERED: MULTIVITAMINS/MINERALS THERAPEUTIC TAB PO SCH (21:00)
== END 2017-02-02 15:49 | disposition home health service (06) | DRG 470 ==
LOC: HSDI 05:03 → N06B 09:47
PROVIDERS: ADMIT Orthopaedic Surgery Sports Medicine; ATTEND Orthopaedic Surgery Sports Medicine
PROC: 3E0T3BZ Introduction of Anesthetic Agent into Peripheral Nerves and Plexi, Percutaneous Approach (ICD-10-PCS; 2017-02-01)
PROC: 0SRD0J9 Replacement of Left Knee Joint with Synthetic Substitute, Cemented, Open Approach (ICD-10-PCS; principal; 2017-02-01 07:25)
DX: M17.12 Unilateral primary osteoarthritis, left knee (principal); D68.61 Antiphospholipid syndrome; F32.9 Major depressive disorder, single episode, unspecified; F41.9 Anxiety disorder, unspecified; K59.00 Constipation, unspecified; D64.9 Anemia, unspecified; Z86.718 Personal history of other venous thrombosis and embolism
CPT/HCPCS: 73560; 80048; 85027; 85610; 86850; 86900; 86901; 94150; J0131; J0690; J0735; J1100; J1580; J1650; J1885; J2175; J2795; J3370; J7030; J7050; J7120